=== PATIENT | female | born 1995 | race Hispanic/Latino ===

== ENCOUNTER 2020-01-31 11:53 | Emergency (ER) | payer SELFPAY ==
[2020-01-31 12:03] VITALS: BP 148/72; PULSE 102; RESP 17; TEMP 36.4; O2SAT 99
[2020-01-31 12:34] LABS: Add Urine Microscopic? YES; Appearance Urine Clear (Clear); Bacteria Urine Trace /hpf; Bilirubin Urine Negative (Negative); Blood Urine Negative (Negative); Color Urine Yellow (Yellow); Glucose Urine UA 3+ mg/dL (Negative); Ketones Urine 2+ mg/dL (Negative); Leukocyte Esterase Ur 1+ LEU/UL (Negative); Nitrate Urine Negative (Negative); Protein Urine 2+ mg/dL (Negative); Squamous Epithelial Cell Urine Few /hpf (Few); Urobilinogen Urine Negative mg/dL (<2.0); WBC Urine 16-20 /hpf
[2020-01-31 12:35] LABS: Specific Grav Ur 1.038 (1.001-1.035)
[2020-01-31 13:11] LABS: Glucose Point of Care 410 (65-105)
[2020-01-31 13:24] LABS: Basophils Percent Auto 0.4 % (0.2-1.2); Eosinophils Absolute Auto 0.1 K/mm3 (0-0.3); Eosinophils Percent Auto 0.6 % (0-4.4); Hematocrit 45.3 % (37.0-47.0); Hemoglobin 15.3 g/dL (12.0-15.0); Immature Granulocyte Absolute 0.02 K/mm3 (0.00-0.031); Immature Granulocyte Percent A 0.2 % (0-0.5); Lymphocytes Absolute Auto 1.49 K/mm3 (0.9-3.2); Lymphocytes Percent Auto 15.1 % (18.3-44.2); Mean Corpuscular HGB Conc 33.8 g/dl (32-36); Mean Corpuscular Hemoglobin 28.8 pg (26-34); Mean Corpuscular Volume 85.3 fl (80-100); Mean Platelet Volume 10.4 fl (7.4-10.4); Monocytes Absolute Auto 0.9 K/mm3 (0.1-0.6); Monocytes Percent Auto 8.7 % (2.6-8.5); Neutrophils Absolute Auto 7.4 K/mm3 (1.3-6.7); Platelet Count Result 279 k/mm3 (150-375); Red Blood Count 5.31 M/mm3 (4.2-5.4); Red Cell Distribution Width 12.4 % (11.5-14.5); White Blood Count 9.9 K/mm3 (4.5-10.0)
[2020-01-31 13:41] LABS: Alanine Aminotransferase 119 U/L (4-35); Albumin Level 4.4 g/dL (3.5-5.1); Alkaline Phosphatase 84 U/L (38-126); Aspartate Amino Transferase 83 U/L (14-36); Bilirubin,Total 1.4 mg/dL (0.2-1.3); Blood Urea Nitrogen 10 mg/dL (7-17); Calcium 9.4 mg/dL (8.4-10.2); Carbon Dioxide 23 mmol/L (22-30); Chloride 97 mmol/L (98-107); Estimated CRCL calculation 251 ml/min; Estimated Glomerular Filt Rate > 60; Glucose 434 mg/dL (65-105); Hemoglobin A1C > 14.0 % (<5.7); Potassium 4.7 mmol/L (3.4-5.0); Sodium 128 mmol/L (137-145)
--- NOTE | 2020-01-31 13:41 | ED.FEMALEGU ---
HPI - Female Genitourinary General Chief complaint: Urogenital-Female Stated complaint: GENITAL AREA PAIN Time Seen by Provider: 01/31/20 12:51 Source: patient History of Present Illness HPI Narrative: 24 years old female presents with severe itching rash and the lower abdomen, groin area, vulvovaginal area for over 1 months, lately started having same rash under both breasts mainly left 1. Severely itchy. Patient denies any fever, chills, nausea, vomiting, similar symptoms. Patient is not sexually active. Patient denies any vaginal discharge or bleeding. Related Data Allergies Allergy/AdvReac Type Severity Reaction Status Date / Time No Known Allergies Allergy Verified 01/31/20 11:53 Review of Systems Review of Systems: Narrative: CONSTITUTIONAL: Denies fever, chills, or sweats. EYES: Denies visual changes, redness, or discharge. ENT: Denies rhinorrhea, congestion, sore throat, or otalgia. CARDIOVASCULAR: Denies chest pain, palpitations, or edema. RESPIRATORY: Denies cough or dyspnea. GASTROINTESTINAL: Denies abdominal pain, nausea, vomiting, or diarrhea. GENITOURINARY: Denies dysuria or hematuria. SKIN: Denies rash or itching. MUSCULOSKELETAL: Denies back pain, joint pain, or myalgia. NEUROLOGIC: Denies headache, numbness, or weakness. PSYCHIATRIC: Denies anxiety or depression. PMFSH Social History Social History Gender identity (if verbalized by the patient): Female Exam Narrative: Exam Narrative: General appearance: Well-developed, well-nourished Skin: Normal color, extensive skin rash, erythematous changes of the groin area, lower abdomen and perineal area bilaterally and under left breast consistent with candidiasis. Head: Normocephalic, nontraumatic Eyes: Clear conjunctiva ENT: Oropharynx normal, ears normal, nose normal Neck: Supple, nontender Chest and respiratory: Airway patent, no respiratory distress, no accessory muscle use Heart: Regular rate/rhythm Abdomen: Soft, nontender, no organomegaly, quiet bowel sounds Vascular: Normal peripheral pulses, normal capillary refill. 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, no gross motor deficit Course Course Emergency Course: Unchanged Vital Signs Vital signs: Vital Signs Temperature 36.4 C 01/31/20 12:03 Pulse Rate 102 H 01/31/20 12:03 Respiratory Rate 17 01/31/20 12:03 Blood Pressure 148/72 H 01/31/20 12:03 Pulse Oximetry 99 01/31/20 12:03 Temperature 36.4 C 01/31/20 12:03 Pulse Rate 102 H 01/31/20 12:03 Respiratory Rate 17 01/31/20 12:03 Blood Pressure 148/72 H 01/31/20 12:03 Pulse Oximetry 99 01/31/20 12:03 MDM - Female Genitourinary MDM Narrative Medical decision making narrative: Extensive widespread candidiasis at young age make me think about possible diabetes. Patient does not have any previous medical history. I plan to get labs, and check hemoglobin A1c. Further plan to follow Differential Diagnosis Differential diagnosis: Likely urinary tract infection Lab Data Result diagrams: 01/31/20 13:19 01/31/20 13:19 Labs: Lab Results 01/31/20 01/31/20 01/31/20 Range/Units 12:13 13:10 13:19 WBC 9.9 (4.5-10.0) K/mm3 RBC 5.31 (4.2-5.4) M/mm3 Hgb 15.3 H (12.0-15.0) g/dL Hct 45.3 (37.0-47.0) % MCV 85.3 (80-100) fl MCH 28.8 (26-34) pg MCHC 33.8 (32-36) g/dl RDW 12.4 (11.5-14.5) % Plt Count 279 (150-375) k/mm3 MPV 10.4 (7.4-10.4) fl Immature Gran % (Auto) 0.2 (0-0.5) % Neut % (Auto) 75.0 H (45.5-73.1) % Lymph % (
[2020-01-31 14:23] LABS: Alveolar/Arterial O2 Gradient 30.8 mmHg; Base Excess ABG 1.7 mEq/l (+/-2.0); Fractional Inspired Oxygen 21 %; HCO3 ABG 24.9 mEq/l (22.0-26.0); Oxygen Content ABG 20.2 %vol (16.0-22.0); Oxygen Saturation ABG 96.3 % (95.0-100.0); Oxyhemoglobin 94.5 % THb (90.0-100.0); PCO2 ABG 34.7 mmHg (35.0-45.0); PO2 ABG 77.4 mmHg (80.0-100.0); PO2 FiO2 Ratio Arterial Blood 3.69 %; Total Hemoglobin 15.2 g/dL (12.0-18.0); pH ABG 7.473 (7.350-7.450)
[2020-01-31 14:26] LABS: Device ROOM AIR; Modified Allen's Test Pass; Site Drawn LEFT RADIAL
[2020-01-31] MEDS: SODIUM CHLORIDE 0.9% IV 1,000 ML 999 ML IV CONT ×2 (14:26)
[2020-01-31 14:54] VITALS: BP 128/82; PULSE 107; RESP 16; O2SAT 98
[2020-01-31] MEDS: INSULIN HUMAN REGULAR (*BKC) 100 UNITS/ML 8 UNITS SUB-Q (15:22)
[2020-01-31 15:38] LABS: Glucose Point of Care 264 (65-105)
== END 2020-01-31 15:46 | disposition home or self-care (01) ==
PROVIDERS: General Practice; Emergency Provider Emergency Medicine
DX: E13.620 Other specified diabetes mellitus with diabetic dermatitis (principal)
CPT/HCPCS: 36415; 36600; 80053; 81001; 82805; 82948; 83036; 85025; 87077; 87086; 87088; 96360; 99283; J1815; J7030

== ENCOUNTER 2020-02-01 15:19 | Emergency (ER) | payer SELFPAY ==
--- NOTE | 2020-02-01 15:36 | ED.FEMALEGU ---
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 Reports vaginal redness, excoriation, rash under her breasts, rash under her abdominal skin fold. Reports she was seen in the emergency room yesterday, was diagnosed with type 2 diabetes and was given a prescription for metformin which she has not yet filled, she was also given a prescription for triamcinolone cream which she has used all of. Reports no change in her rash. She denies any confusion, polyuria, polydipsia, abdominal pain. MD elicited complaint: genital itching Related Data Allergies Allergy/AdvReac Type Severity Reaction Status Date / Time No Known Allergies Allergy Verified 01/31/20 11:53 Review of Systems Review of Systems: Narrative: CONSTITUTIONAL: Denies malaise, chills, sweats, or fever. EYES: Denies visual changes CARDIOVASCULAR: Denies chest pain, palpitations, or edema. RESPIRATORY: Denies cough or dyspnea. GASTROINTESTINAL: Denies abdominal pain, nausea, vomiting, diarrhea GENITOURINARY: Denies frequency, urgency, hematuria, flank pain SKIN: Reports vaginal excoriation, redness, rash causing burning when she urinates, reports rash under breasts and under her abdominal fold MUSCULOSKELETAL: Deniesmyalgia. NEUROLOGIC: Denies numbness, weakness, or headache. All systems reviewed & are unremarkable except as noted in HPI and below PMFSH Social History Social History Gender identity (if verbalized by the patient): Female Comments At time of signature, agree with nursing past medical, surgical, social and family history. There is no relevant family history pertinent to the presenting complaint Exam Narrative: Exam Narrative: GENERAL: Well-appearing, well-nourished, and in no acute distress. HEAD: Normocephalic, atraumatic. EYES: PERRLA, conjunctivae clear ENT: Mucous membranes moist. NECK: Supple. CHEST: No respiratory distress. Speaks in full sentences. HEART: Regular rate and rhythm. ABDOMEN: Soft, nontender, nondistended, no palpable masses. SKIN: Warm, dry. Erythematous, excoriated rash noted below abdominal fold and breasts consistent with candidiasis NEURO: Alert and oriented x3. PSYCH: Normal mood and affect : External Female Exam: erythema (Gross vulvovaginal erythema, excoriation consistent with candidiasis) Course Course Emergency Course: Extensive discussion with patient regarding picking up her metformin medication and taking as directed as well as establishing care with a primary care provider as soon as possible for management of her newly diagnosed diabetes. Patient reports she will call her primary care provider today. Patient is aware of diagnosis, understands and agrees to treatment plan. Anticipatory guidance given. Patient agrees to follow-up as directed and is aware of reasons to seek care at the emergency department. Portions of this record may have been created with voice recognition software Vital Signs Vital signs: Vital Signs Temperature 98.8 F 02/01/20 15:46 Pulse Rate 93 02/01/20 15:46 Respiratory Rate 16 02/01/20 15:46 Blood Pressure 128/80 02/01/20 15:46 Pulse Oximetry 98 02/01/20 15:46 Temperature 98.8 F 02/01/20 15:46 Pulse Rate 93 02/01/20 15:46 Respiratory Rate 16 02/01/20 15:46 Blood Pressure 128/80 02/01/20 15:46 Pulse Oximetry 98 02/01/20 15:46 Reviewed. Patient has been instructed to follow up with her primary care provider within the next week regarding her elevated blood pressure today. MDM - Female Genitourinary MDM Narrative Medical decision making narrative: Does not appear at this time to be erythema multiforme, bullous, SJS,
[2020-02-01 15:46] VITALS: BP 128/80; PULSE 93; RESP 16; TEMP 37.1; O2SAT 98
== END 2020-02-01 16:16 | disposition home or self-care (01) ==
PROVIDERS: Emergency Provider Nurse Practitioner
DX: B37.3 Candidiasis of vulva and vagina (principal); B37.2 Candidiasis of skin and nail; E11.9 Type 2 diabetes mellitus without complications; R03.0 Elevated blood-pressure reading, without diagnosis of hypertension
CPT/HCPCS: 99213; G0463

== ENCOUNTER 2021-06-21 03:23 | Emergency (ER) | payer SELFPAY ==
[2021-06-21 03:26] VITALS: BP 127/76; PULSE 85; RESP 18; TEMP 36.3; O2SAT 99
--- NOTE | 2021-06-21 03:42 | ED.URI ---
HPI - URI/Sore Throat General Chief Complaint: Upper Respiratory Infection Stated Complaint: congestion over X1 month Time Seen by Provider: 06/21/21 03:27 Source: patient Mode of arrival: ambulatory Limitations: no limitations History of Present Illness HPI Narrative: Patient is a 25-year-old female complaining of nasal congestion x1 month. Patient denies any chest pain, shortness of breath, cough, sore throat, abdominal pain, nausea, vomiting, fever or chills. Related Data Allergies Allergy/AdvReac Type Severity Reaction Status Date / Time No Known Allergies Allergy Verified 06/21/21 03:31 Review of Systems Review of Systems: All systems reviewed & are unremarkable except as noted in HPI and below Constitutional: Constitutional: Denies body ache(s), Denies chills, Denies excessive sweating, Denies fatigue, Denies fever(s), Denies headache(s), Denies lethargy, Denies malaise, Denies weakness and Denies weight loss Eyes: Eyes: Denies blurry vision, Denies change in vision and Denies loss of vision ENT: Denies dizziness, Denies ear discharge, Denies headache(s), Denies lip swelling, Denies epistaxis, Reports nasal congestion, Denies neck pain, Denies throat swelling and Denies tongue swelling Cardiovascular: Cardiovascular: Denies chest pain, Denies chest pain at rest, Denies chest pain with activity, Denies diaphoresis, Denies rapid heart rate, Denies edema, Denies irregular heart rhythm, Denies lightheadedness, Denies palpitations, Denies dyspnea and Denies dyspnea on exertion Respiratory: Respiratory: Denies chest congestion, Denies cough, Denies hemoptysis, Denies dyspnea and Denies dyspnea on exertion Gastrointestinal: Gastrointestinal: Denies abdominal pain, Denies melena, Denies hematochezia, Denies diarrhea, Denies nausea, Denies vomiting and Denies hematemesis Musculoskeletal: Musculoskeletal: Denies abnormal gait, Denies deformity, Denies joint swelling, Denies limited range of motion, Denies neck pain and Denies numbness Neurologic: Denies Abnormal speech present, Denies abnormal gait, Denies confusion, Denies dizziness, Denies headache(s), Denies focal weakness, Denies loss of vision, Denies numbness, Denies Other visual disturbances, Denies Sensory deficit (Neuro) and Denies weakness Psychiatric: Psychiatric: Denies confusion, Denies depression, Denies auditory hallucinations, Denies homicidal ideation and Denies suicidal ideation Endocrine: Endocrine: Denies cold intolerance, Denies excessive sweating, Denies fatigue, Denies heat intolerance and Denies palpitations Hematologic/Lymphatic: Hematologic/Lymphatic: Denies easy bleeding and Denies easy bruising Allergic/Immunologic: Allergic/Immunologic: Denies lip swelling, Denies throat swelling and Denies tongue swelling [facility] Social History Social History Gender identity (if verbalized by the patient): Female Comments Past medical history: None Family history: Unknown Social history: Non-smoker no EtOH or drug use Exam Const: General: cooperative, healthy appearing, comfortable, no acute distress, well developed, alert and awake; No confusion Orientation/consciousness: oriented to person, oriented to place, oriented to time, patient oriented x3 and No confusion Limitations: no limitations HENMT: Head: normal to inspection, normocephalic and atraumatic Ears: hearing grossly normal bilaterally, TM normal on the right and TM normal on the left General nose exam: Normal external nose present and Normal nares present Face and sinus: normal facial exam Mouth: Yes Normal oral and palatal mucosa present, Yes lip normal, Yes tongue normal and Yes oropharynx normal Throat: posterior oropharynx normal, tonsils normal and uvula midline Other: Erythematous, swollen, boggy nasal turbinates Eyes: General: appearance normal, both eyes and all related structures Pupils: Equal, round and reactive pupils present EOM: EOM
== END 2021-06-21 04:28 | disposition home or self-care (01) ==
PROVIDERS: Emergency Provider Emergency Medicine
DX: J30.89 Other allergic rhinitis (principal)
CPT/HCPCS: 99283

== ENCOUNTER 2024-03-11 23:43 | Emergency (ER) | payer SELFPAY ==
--- NOTE | ~2024-03-11 | CT_ITS ---
CT of the Abdomen and Pelvis: Indication: Abdominal pain Technique: 2.5 mm axial scans were obtained through the abdomen and pelvis following intravenous adm inistration of 100 cc of Omnipaque 350. Dose reduction technique was used on this scan by utilizing a utomated exposure control and iterative reconstruction technique. The dose-length product (DLP) was 1 502.88 mGy-cm. Findings: Scans through the lung bases are unremarkable. The liver, spleen, pancreas, gallbladder, adrenals and kidneys are within normal limits. No evidence of aortic aneurysm. No lymphadenopathy. No bowel obstruction or bowel wall thickening. There is no evidence to suggest acute appendicitis. Sm all fat-containing umbilical hernia noted. Images through the pelvis were performed. Urinary bladder unremarkable. No pelvic mass seen. No ascit es. Impression: No acute abnormalities seen. Small fat-containing umbilical hernia. Reviewed, dictated and finalized at [facility]. Impression: No acute abnormalities seen. Small fat-containing umbilical hernia.
[2024-03-11 23:46] VITALS: BP 135/70; PULSE 62; RESP 15; TEMP 36.3; O2SAT 100
--- NOTE | 2024-03-12 00:20 | ED.ABDPAIN ---
HPI - Abdominal Pain General Chief Complaint: Abdominal Pain <Lydia Falcon PA-C - Last Filed: 03/12/24 03:04> Stated Complaint: abdominal pain <Lydia Falcon PA-C - Last Filed: 03/12/24 03:04> Time Seen by Provider: 03/12/24 00:02 <Lydia Falcon PA-C - Last Filed: 03/12/24 03:04> History of Present Illness HPI narrative: 28-year-old female presents emergency department for right-sided abdominal pain and back pain that started yesterday morning. Patient states the pain Is intermittent. She describes the pain as a burn. She states it is worse after she eats food. States she has been eating chicken and steak with worsening symptoms. She also reports nausea and vomiting. Denies diarrhea. Last bowel movement was at 4:00 p.m. today and normal. Denies known fever, dysuria or hematuria. Denies prior abdominal surgeries. Denies history of kidney stones. <Lydia Falcon PA-C - Last Filed: 03/12/24 03:04> Related Data Allergies/Adverse Reactions: Allergies Allergy/AdvReac Type Severity Reaction Status Date / Time No Known Allergies Allergy Verified 03/11/24 23:49 <Lydia Falcon PA-C - Last Filed: 03/12/24 03:04> Review of Systems Review of Systems: All systems reviewed & are unremarkable except as noted in HPI and below <Lydia Falcon PA-C - Last Filed: 03/12/24 03:04> PMFSH Social History Social History: Social History Gender identity (if verbalized by the patient): Female <Lydia Falcon PA-C - Last Filed: 03/12/24 03:04> Exam Narrative: GENERAL: Well-appearing, well-nourished, and in no acute distress. HEAD: Normocephalic, atraumatic. EYES: PERRLA and EOMI. ENT: Nares clear, no rhinorrhea or epistaxis. Mucous membranes moist. NECK: Supple. CHEST: Clear to auscultation. No respiratory distress. HEART: Regular rate and rhythm. No murmur heard. Normal peripheral pulses. ABDOMEN: Quiet bowel sounds. Abdomen soft with tenderness in the right upper quadrant. No rebound, guarding or rigidity. Negative Harris sign. Minimal CVA tenderness bilaterally. EXTREMITIES: Normal range of motion. No edema. SKIN: Warm, dry, no rash. NEURO: No focal deficits. Alert and oriented x3 <Lydia Falcon PA-C - Last Filed: 03/12/24 03:04> Course Course Emergency Course: 04:27 - STAT Rad interpretation of CT abdomen pelvis demonstrates ?no acute findings. ? Possible causes include GERD and biliary colic. Will discharge with a PPI and recommendations for primary care follow-up. I discussed the findings and recommendations with the patient. Discussed return and emergency precautions including signs/symptoms of acute abdomen and intractable vomiting. The patient voiced understanding and agreement with the plan. All questions answered to her satisfaction. <Benji Corral MD - Last Filed: 03/12/24 04:32> Vital Signs Vital signs: Vital Signs Temperature 97.4 F L 03/11/24 23:46 Pulse Rate 62 03/11/24 23:46 Respiratory Rate 15 03/11/24 23:46 Blood Pressure 135/70 03/11/24 23:46 Pulse Oximetry 100 03/11/24 23:46 Oxygen Delivery Room Air 03/11/24 23:46 Temperature 97.4 F L 03/11/24 23:46 Pulse Rate 77 03/12/24 03:59 Respiratory Rate 16 03/12/24 03:59 Blood Pressure 101/62 03/12/24 03:59 Pulse Oximetry 100 03/12/24 03:59 Oxygen Delivery Room Air 03/11/24 23:46 <Lydia Falcon PA-C - Last Filed: 03/12/24 03:04> Vital Signs Temperature 97.4 F L 03/11/24 23:46 Pulse Rate 62 03/11/24 23:46 Respiratory Rate 15 03/11/24 23:46 Blood Pressure 135/70 03/11/24 23:46 Pulse Oximetry 100 03/11/24 23:46 Oxygen Delivery Room Air 03/11/24 23:46 Temperature 97.4 F L 03/11/24 23:46 Pulse Rate 77 08/09/24 03:59 Respiratory Rate 16 03/12/24 03:59 Blood Pressure 101/62 03/12/24 03:59 Pulse Oximetry 100 03/12/24
[2024-03-12] MEDS: SODIUM CHLORIDE 0.9% IV 1,000 ML 999 ML IV CONT (00:24)
[2024-03-12 00:33] LABS: BEDSIDEPREGUCG Negative
[2024-03-12 00:35] LABS: Basophils Absolute Auto 0.1 K/mm3 (0.0-0.1); Basophils Percent Auto 0.4 % (0.2-1.2); Eosinophils Absolute Auto 0.4 K/mm3 (0-0.3); Hematocrit 40.1 % (37.0-47.0); Hemoglobin 13.7 g/dL (12.0-15.0); Immature Granulocyte Absolute 0.03 K/mm3 (0.00-0.031); Immature Granulocyte Percent A 0.3 % (0-0.5); Lymphocytes Absolute Auto 3.43 K/mm3 (0.9-3.2); Lymphocytes Percent Auto 28.8 % (18.3-44.2); Mean Corpuscular HGB Conc 34.2 g/dl (32-36); Mean Corpuscular Hemoglobin 29.2 pg (26-34); Mean Corpuscular Volume 85.5 fl (80-100); Mean Platelet Volume 9.8 fl (7.4-10.4); Monocytes Absolute Auto 0.7 K/mm3 (0.1-0.6); Monocytes Percent Auto 6.1 % (2.6-8.5); Neutrophils Absolute Auto 7.3 K/mm3 (1.3-6.7); Neutrophils Percent Auto 61.4 % (45.5-73.1); Platelet Count Result 301 k/mm3 (150-375); Red Blood Count 4.69 M/mm3 (4.2-5.4); Red Cell Distribution Width 12.6 % (11.5-14.5); White Blood Count 11.9 K/mm3 (4.5-10.0)
[2024-03-12 00:41] LABS: Add Urine Microscopic? YES; Appearance Urine Clear (Clear); Bacteria Urine None Seen /hpf; Bilirubin Urine Negative (Negative); Blood Urine Negative (Negative); Color Urine Yellow (Yellow); Glucose Urine UA Negative (Negative); Ketones Urine Trace mg/dL (Negative); Leukocyte Esterase Ur Trace LEU/UL (Negative); Nitrate Urine Negative (Negative); Non Pathogenic Casts 0-2; Protein Urine Trace mg/dL (Negative); RBC Urine 0-2 /hpf (0-2); Specific Grav Ur 1.032 (1.001-1.035); Squamous Epithelial Cell Urine Occasional /hpf (Few); WBC Urine 0-5 /hpf (0-3); pH Urine 6.5 (5.0-9.0)
[2024-03-12 00:56] LABS: Lactic Acid Reflex 1.1 mmol/L (0.7-2.0)
[2024-03-12 00:59] LABS: Alanine Aminotransferase 38 U/L (6-35); Albumin Level 4.2 g/dL (3.5-5.1); Alkaline Phosphatase 56 U/L (38-126); Anion Gap 10 mmol/L (4-12); Aspartate Amino Transferase 38 U/L (14-36); Bilirubin,Total 0.8 mg/dL (0.2-1.3); Blood Urea Nitrogen 18 mg/dL (7-17); Carbon Dioxide 27 mmol/L (22-30); Chloride 100 mmol/L (98-107); Estimated CRCL calculation 168 ml/min; Estimated Glomerular Filt Rate > 60; Glucose 178 mg/dL (65-110); Lipase 120 U/L (23-300); Potassium 3.9 mmol/L (3.4-5.0); Sodium 137 mmol/L (137-145)
[2024-03-12 03:59] VITALS: BP 101/62; PULSE 77; RESP 16; O2SAT 100
== END 2024-03-12 04:49 | disposition home or self-care (01) ==
PROVIDERS: Physician Assistant; Emergency Provider Preventive Medicine Aerospace Medicine
DX: R10.11 Right upper quadrant pain (principal); E11.9 Type 2 diabetes mellitus without complications; Z79.84 Long term (current) use of oral hypoglycemic drugs
CPT/HCPCS: 36415; 74177; 80053; 81001; 81025; 83605; 83690; 85025; 96360; 96361; 99284; J7030; Q9967